=== PATIENT | male | born 1960 | race Asian ===

== ENCOUNTER → 2023-10-30 | Outpatient (CLI) | payer BC ==
--- NOTE | 2023-10-30 14:01 | XR ---
EXAMINATION TYPE: XR wrist complete LT DATE OF EXAM: 10/30/2023 COMPARISON: NONE HISTORY: Pain TECHNIQUE: Four views submitted. FINDINGS: There is a mildly displaced intra-articular fracture of the distal radius. Mild narrowing of first carpometacarpal joint and radiocarpal joint. Scapholunate joint distance is at the upper limits of normal measuring 2.5 mm. Mineralization is normal. No erosive changes. IMPRESSION: 1. Mildly displaced intra-articular fracture of the distal radius. A [place] level critical message alert has been initiated for Domenico Cheung MD via the [employer] Critical Results System on 10/30/2023 1:51 PM. This message alert has been sent to Domenico Cheung MD via the preferences provided by the clinician for the receipt of Radiology Critical Findings. Messag e ID [id number].
== END | disposition home or self-care (01) ==
LOC: RADXRMAIN 13:18
PROVIDERS: ATTEND Orthopaedic Surgery
DX: S52.572A Other intraarticular fracture of lower end of left radius, initial encounter for closed fracture (principal); X58.XXXA Exposure to other specified factors, initial encounter

== ENCOUNTER → 2024-07-05 | Outpatient (CLI) | payer BC ==
--- NOTE | 2024-07-05 22:46 | MR ---
EXAMINATION TYPE: MR hip LT wo con DATE OF EXAM: 07/05/2024 4:52 PM COMPARISON: None. CLINICAL INDICATION: Male, 63 years old with history of M16.10, Left hip pain, S/P running. IV Contrast: cc (None if empty) Standard multiplanar, multisequence MRI departmental protocol Multiplanar, multisequence images of the pelvis focus and left hip were acquired without contrast. Di ffusion weighted imaging was performed. FINDINGS: Moderate narrowing of both hip joints is slightly more prominent on the left. Small to mode rate size joint effusions are more prominent on the left. Mild to moderate acetabular spurring bilate rally is more prominent on the left. Femoral head shapes are maintained bilaterally. There is asymmet che increased T2 signal or edema in the superior acetabulum on the left. No serpiginous diminished T1 signal to suggest avascular necrosis is seen in the left femoral head. No suspicious increase T2 sig nal or osseous edema in the proximal left femur is noted. Muscle bulk is symmetric and maintained nicole aterally. No groin hernia or adenopathy is seen. No free fluid in the pelvis. No abnormal bowel dilatation. Bladder and prostate gland are grossly wit hin normal limits. IMPRESSION: Moderate degenerative changes bilaterally more prominent in the left hip with asymmetric left-sided a cetabular bone marrow edema is noted. [facility], , 07/05/2024 10:44 PM
== END | disposition home or self-care (01) ==
LOC: RADMRIMAIN 15:15
PROVIDERS: ATTEND Family Medicine
DX: M16.0 Bilateral primary osteoarthritis of hip (principal); R60.0 Localized edema

== ENCOUNTER → 2024-11-11 | Outpatient (CLI) | payer BC ==
--- NOTE | 2024-11-11 13:11 | XR ---
EXAMINATION TYPE: XR chest 2V DATE OF EXAM: 11/11/2024 1:06 PM COMPARISON: Chest radiographs from TECHNIQUE: XR chest 2V Frontal and lateral views of the chest. CLINICAL INDICATION:Male, 64 years old with history of Z01.818 ENCOUNTER FOR OTHER PREPROCEDURAL EXAM INAT; FINDINGS: Lungs/Pleura: There is no evidence of pleural effusion, focal consolidation, or pneumothorax. Right perihilar 2.2 cm nodular opacity. Pulmonary vascularity: Unremarkable. Heart/mediastinum: Cardiomediastinal silhouette is unremarkable. Musculoskeletal: No acute osseous pathology. Mild multilevel degenerative disc disease. IMPRESSION: Right perihilar 2.2 cm nodular opacity. Recommend further evaluation with CT chest with IV contrast. [facility], , 11/11/2024 1:09 PM
== END | disposition home or self-care (01) ==
LOC: RADXRMAIN 12:55
PROVIDERS: ATTEND Family Medicine
DX: Z01.818 Encounter for other preprocedural examination (principal); R91.8 Other nonspecific abnormal finding of lung field
CPT/HCPCS: 71046

== ENCOUNTER → 2024-11-12 | Outpatient (CLI) | payer BC ==
[2024-11-12 15:45] LABS: Partial Thromboplastin Time 23.2 sec (22.0-30.0); Prothrombin Time 10.8 sec (10.0-12.5)
[2024-11-12 18:28] LABS: HCT 40.4 % (39.6-50.0); HGB 12.9 g/dL (13.0-17.0); MCH 26.9 pg (27.0-32.0); MCHC 31.9 g/dL (32.0-37.0); MCV 84.2 FL (80.0-97.0); Mean Platelet Volume 9.9 FL (9.5-12.2); NRBC Per 100 WBC 0 X 10*3/uL (0.00-0.01); Platelet Count 276 X 10*3/uL (140-440); RDW 13.4 % (11.5-14.5); WBC 5.98 X 10*3/uL (4.50-10.00)
[2024-11-12 18:48] LABS: ALT 22 U/L (10-49); AST 26 U/L (14-35); Albumin 4.4 g/dL (3.8-4.9); Albumin/Globulin Ratio 1.83 Ratio (1.60-3.17); Alkaline Phosphatase 80 U/L (41-126); BUN/Creat Ratio 17.11 Ratio (12.00-20.00); Blood Urea Nitrogen 15.4 mg/dL (9.0-27.0); Calcium 9.4 mg/dL (8.7-10.3); Carbon Dioxide 26.6 mmol/L (21.6-31.8); Chloride 103 mmol/L (96-109); Globulin 2.4 g/dL (1.6-3.3); Glucose 80 mg/dL (70-110); Potassium 4.4 mmol/L (3.5-5.5); Sodium 143 mmol/L (135-145); T4, Free (Free Thyroxine) 1.53 ng/dL (0.80-1.80); Total Bilirubin 0.4 mg/dL (0.3-1.2); Total Protein 6.8 g/dL (6.2-8.2)
[2024-11-12 22:08] LABS: Appearance,Urine Clear (Clear); Bilirubin,Urine Negative (Negative); Blood,Urine Negative (Negative); Color,Urine Yellow (Yellow); Ketones,Urine Negative (Negative); Nitrite,Urine Negative (Negative); Specific Gravity,Urine 1.009 (1.001-1.030); Urobilinogen,Urine 0.2 E.U./DL
== END | disposition home or self-care (01) ==
LOC: LABPAT 14:23
PROVIDERS: ATTEND Orthopaedic Surgery
DX: Z01.812 Encounter for preprocedural laboratory examination (principal); M16.12 Unilateral primary osteoarthritis, left hip; Z22.322 Carrier or suspected carrier of Methicillin resistant Staphylococcus aureus
CPT/HCPCS: 36415; 80053; 81003; 83036; 84439; 84443; 84481; 85027; 85610; 85730; 86850; 86900; 86901; 87070; 87086

== ENCOUNTER → 2024-11-13 | Outpatient (CLI) | payer BC ==
--- NOTE | 2024-11-13 15:01 | CT ---
CT chest with contrast. HISTORY: Solitary pulmonary nodule. COMPARISON: None. TECHNIQUE: Multiple axial images are obtained through the thorax following nonionic IV contrast. FINDINGS: In the right lower lobe posteriorly there is a 2.2 cm nodule with coarse or dense calcification centr ally. There is a 5 mm nodule in the left upper lobe, 4.4 mm nodule in the left upper lobe and a 6.3 mm supe rficial nodule on the left. There is no airspace consolidation or abnormal interstitial density. There is no pleural effusion, pleural thickening or pneumothorax. The great vessels the chest are normal with no mediastinal, hilar or axillary adenopathy. There is no pulmonary embolus. Limited scanning of the upper abdomen reveals no gross abnormality. No focal osseous lesions are seen. IMPRESSION: 1. No acute cardiopulmonary disease. 2. 2.2 cm benign nodule with coarse calcification in the right lower lobe posteriorly.. 3. A few micronodules and sub-5 mm left upper lobe nodules. CT thorax in 6 months is recommended to c onfirm stability. [facility], Workstation: [id number] 11/13/2024 2:59 PM
== END | disposition home or self-care (01) ==
LOC: RADCTMAIN 14:23
PROVIDERS: ATTEND Family Medicine
DX: R91.8 Other nonspecific abnormal finding of lung field (principal); I25.10 Atherosclerotic heart disease of native coronary artery without angina pectoris
CPT/HCPCS: 71260; Q9967

== ENCOUNTER → 2024-11-20 | Outpatient (CLI) | payer BC | END | disposition home or self-care (01) | LOC: LABPAT 13:15 | PROVIDERS: ATTEND Orthopaedic Surgery | DX: Z01.812 Encounter for preprocedural laboratory examination (principal); M16.12 Unilateral primary osteoarthritis, left hip; Z22.322 Carrier or suspected carrier of Methicillin resistant Staphylococcus aureus | CPT/HCPCS: 86850; 86900; 86901 ==

== ENCOUNTER 2024-11-25 05:38 | Day surgery (SDC) | payer BC ==
[~2024-11-25 05:38] MED LIST: TRANEXAMIC 1,000 MG/100ML-NACL 1,000 MG in SALINE 1 100ML.BAG IVPB PRN
[2024-11-25] MEDS: IV FLUID CONTINUATION 1,000 ML IV ONE (06:07)
[2024-11-25 06:18] LABS: Glucose,Whole Blood 88 mg/dL (70-110)
[2024-11-25] MEDS: DEXAMETHASONE SOD PHOSPHATE 4 MG/ML 1 ML VIAL IV ONE (06:27)
[2024-11-25] MEDS: MELOXICAM 7.5 MG TAB PO PRN (06:27)
[2024-11-25] MEDS: LACTATED RINGERS 1,000 ML IV SCH (06:27)
[2024-11-25] MEDS: ONDANSETRON 4 MG/2 ML VIAL IVP ONE (06:28)
[2024-11-25] MEDS: ACETAMINOPHEN TAB 500 MG TAB PO PRN (06:28)
[2024-11-25] MEDS: GABAPENTIN 300 MG CAP PO PRN (06:28)
[2024-11-25] MEDS: SCOPOLAMINE 1 MG/72 HR PATCH TRANSDERM ONE (06:41)
[2024-11-25] MEDS: MIDAZOLAM 2 MG/2 ML VIAL IV PRN (06:46)
[2024-11-25] MEDS: fentaNYL (PF) 50 MCG/ML 2 ML AMP IVP STA (06:46)
[2024-11-25] MEDS ORDERED: MIDAZOLAM 2 MG/2 ML VIAL ONE (06:53)
[2024-11-25] MEDS ORDERED: TRANEXAMIC 1,000 MG/100ML-NACL PREMIX BAG ONE (06:53)
[2024-11-25] MEDS ORDERED: PROPOFOL 10 MG/ML 20 ML VIAL IV ONE (06:53)
[2024-11-25] MEDS ORDERED: PHENYLEPHRINE-0.9% NACL SYG 1,000 MCG/10 ML SYRINGE ONE (06:53)
[2024-11-25] MEDS ORDERED: DEXAMETHASONE SOD PHOSPHATE 4 MG/ML 1 ML VIAL ONE (06:53)
[2024-11-25] MEDS ORDERED: ROPIVACAINE 5 MG/ML 30 ML VIAL ONE (06:53)
[2024-11-25] MEDS ORDERED: ePHEDrine 50 MG/ML 1 ML VIAL ONE (06:53)
[2024-11-25] MEDS: ceFAZolin 2 GM in DEXTROSE 5% IN WATER 50 ML IVPB PRN (06:58)
[2024-11-25] MEDS: ceFAZolin 1,000 MG in SODIUM CHLORIDE 0.9% 1,000 ML IRRIGATION ONE (06:58)
[2024-11-25] MEDS ORDERED: HYDROmorphone 0.5 MG/0.5 ML SYRINGE IVP PRN ×3 (07:00→08:25)
[2024-11-25] MEDS: MIDAZOLAM 2 MG/2 ML VIAL IV ONE (07:04)
[2024-11-25] MEDS: ROPIVACAINE 5 MG/ML 30 ML VIAL MISCELLANE ONE ×2 (07:27→07:54)
--- NOTE | 2024-11-25 08:04 | P.OP ---
Date of Procedure: 11/25/24 Preoperative Diagnosis: Severe osteoarthritis left hip Postoperative Diagnosis: Severe osteoarthritis left hip Procedure(s) Performed: Left total hip arthroplasty with a direct anterior approach Implants: [employer] Polarstem standard size 0 with a collar [employer] R3, 3 hole hemispherical acetabular shell, 52 mm [employer] Reflection 6.5 mm cancellus screws, 20 mm 2 [employer] R3, XLPE 20 acetabular liner [employer] Oxinium femoral head 36 mm, +0 All components were press-fit. The articulation is Oxinium on polyethylene. Anesthesia: spinal Surgeon: Forrest Jones Bee Robber #1: Merline Yoo Estimated Blood Loss (ml): 50 Pathology: none sent Condition: stable Disposition: PACU Indications for Procedure: After failure of conservative treatment we discussed the surgical and nonsurgi deborah treatment options at length. Patient wishes to proceed with a total hip arthroplasty with a direct anterior approach. Complications specific to this procedure were discussed at length, including but not limited to infection, leg length discrepancy, dislocation, nerve injury, and fracture. Covid-19 was also discussed at length with the patient, and they are aware of the current policies and procedures. The patient was given the option of delaying surgery, but they elect to proceed knowing these risks. Patient is aware of all these complications and informed consent was obtained Operative Findings: The operative findings are consistent with severe osteoarthritis of the left hip Description of Procedure: The patient was seen and evaluated in the preoperative area and the consent was reviewed. The operative site was marked with a skin marker. The patient verified the procedure and operative site. A BARBI block was placed by anesthesia in the preoperative area. The patient was then brought to the operating room and given preoperative antibiotics intravenously. 1 g of Tranexamic acid was also given intravenously. A spinal anesthetic was administered by the anesthesia department. The patient was then placed on the [place] table with the bony prominences well-padded. The hip area was then prepped with a ChloraPrep solution and draped in the usual sterile fashion. A universal timeout was then performed, which confirmed the patient's name, surgical site, ALLERGIES, and procedure being performed on the consent. Next the incision site was located at 1 cm distal and 4 cm lateral to the anterior superior iliac spine. The skin and subcutaneous tissues were sharply incised. Incision was carefully dissected down to the fascia overlying the tensor fascia mercedes muscle. This fascia was then incised in line with the muscle fibers. Care was taken to stay laterally in order to avoid injuring the lateral femoral cu taneous nerve. Next, using blunt finger dissection, the tensor fascia mercedes muscle was dissected off its investing fascia. The muscle was then carefully retracted laterally with a cobra retractor over the lateral neck of the femur. Next, the circumflex vessels were identified and cauterized using the Aquamantis device. The anterior hip capsule was then exposed. The capsule was then opened and an inverted T fashion. The retractors were then placed intracapsularly. The retractors were maintained intracapsular throughout the procedure. The proximal femur was then visualized. Fluoroscopic x-rays were then taken in order to evaluate the preoperative leg lengths. A small amount of traction was placed on the leg. The femoral neck was then osteotomized at the appropriate level above the lesser trochanter. A small wedge of bone was then removed from the remaining femoral head. Next, using a corkscrew the femoral head was removed from the acetabulum. On gross visual inspection, the femoral head had complete loss of articular cartilage and multiple periarticular osteophytes. The femoral head was then measured. Attention was then turned to the acetabulum. The acetabulum was exposed and any remaining labrum was excised. Sequential reaming of the acetabulum was performed using fluoroscopic guidance until there was a good bed of bleeding cancellus bone. When the appropriate size was reached, a trial was then placed. The position and fit of the trial was checked with fluoroscopy. The trial was then removed. Then, using fluoroscopic guidance, the final implant was impacted at 20 of anteversion and 40 of abduction, and fully seated in the acetabulum. 2 screws were then placed in the acetabulum. Again fluoroscopy was used to check position of the screws. Next, the liner was then impacted, with a 20 elevated liner located in the anterior superior quadrant. Component locking was confirmed. Attention was then directed to the femur. With the aid of the Wy[place] table, the femur was externally rotated to approximately 130, extended, and adducted under the opposite leg. A side hook was then placed under the proximal femur, and the side hook elevator was used to elevate the proximal femur while releasing the capsule. Retractors were then placed. A capsular release was performed, as well as a release of the conjoined tendon, which afforded excellent visua lization of the proximal femur. Next, a box osteotome was used to lateralize the proximal femur. A sack cleaning hand was then used to locate the femoral canal. Sequential broaching was then performed with appropriate size which afforded excellent fixation in the proximal femur. A trial was then placed with appropriate head and neck, and the hip was gently reduced with the aid of the Wyola table. Fluoroscopy was then used to check position of the components, as well as to evaluate the leg lengths and offset. The leg lengths and offset were measured as closely as possible to ensure stability of the hip. The hip was then gently dislocated and the trials were then removed. Final implants were then impacted and the hip was again reduced. Final fluoroscopic x-rays confirmed that the components were in anatomic position. The leg lengths and offset were measured and were found to coincide with the trial measurements. The hip was also taken through range of motion, and found to be stable. The hip was then copiously irrigated with antibiotic solution with pulsatile lavage. The hip was then irrigated with Irrisept solution. The soft tissues were then injected with a ropivacaine solution. A second dose of 1 g of Tranexamic acid was also given intravenously. The fascia was then closed with 2-0 strata fix suture. The subcutaneous tissue was closed with 3-0 Vicryl. The subcuticular tissue was closed with 3-0 moncryl suture. The skin was then closed with Exofin skin glue. After the glue and dried, and Optifoam silver impregnated dressing was applied. The patient was then transferred to the recovery room in stable condition. The child welfare assistant JALEN Driver was required due to the complexity of surgery, and the need for skilled certified surgical tech/first assistant for positioning, draping, exposure, retraction, and closure of the wound.
[2024-11-25] MEDS ORDERED: MAGNESIUM HYDROXIDE 2,400 MG/30 ML CUP PO PRN (08:25)
[2024-11-25] MEDS ORDERED: NALOXONE 0.4 MG/ML 1 ML VIAL IV PRN (08:25)
[2024-11-25] MEDS ORDERED: ONDANSETRON 4 MG/2 ML VIAL IVP PRN (08:25)
[2024-11-25] MEDS ORDERED: HYDROmorphone 1 MG/ML 1 ML SYRINGE IVP PRN (08:25)
[2024-11-25 08:30] LABS: Glucose,Whole Blood 119 mg/dL (70-110)
--- NOTE | 2024-11-25 08:30 | FL ---
EXAMINATION TYPE: FL guidance operating room, XR Hip Limited LT DATE OF EXAM: 11/25/2024 FLUOROSCOPY left hip replacement, fluoro time: 23.8 seconds, DAP: 1.0082, 3 images saved [facility], Workstation: [facility], 11/25/2024 8:28 AM
--- NOTE | 2024-11-25 09:17 | P.ANPRN ---
Procedure Note - Anesthesia - Nerve Block Performed Left Umberto Single Time Out Performed: Yes ([id number]) Date of Procedure: 11/25/24 Procedure Start Time: 06:46 Procedure Stop Time: 06:49 Location of Patient: PreOp Indication: Acute Post-Operative Pain, Requested by Surgeon Specifically requested for management of pain by DrNeftaly: Forrest Jones Sedation Type: Sedate with meaningful contact maintained Preparation: Sterile Prep Position: Supine Catheter: None Needle Types: Pajunk Needle Gauge: 21 Ultrasound used to visualize needle placement: Yes Ultrasound used to observe medication spread: Yes Injectate: 0.5% Ropivacaine (see comment for volume) (30cc+decadron 4mg) Blood Aspirated: No Pain Paresthesia on Injection Noted: No Resistance on Injection: Normal Image Stored and Saved: Yes Events: Uneventful and Well Tolerated
--- NOTE | 2024-11-25 09:26 | XR ---
EXAMINATION TYPE: XR Hip Limited LT DATE OF EXAM: 11/25/2024 8:46 AM COMPARISON: Correlation MRI 07/05/2024 CLINICAL INDICATION: Male, 64 years old with history of Status post hip surgery, assess surgical js harding; PHH, pain TECHNIQUE: XR Hip Limited LT; Frontal view FINDINGS: Image shows placement of left total hip arthroplasty. Acetabular cup and femoral stem components of t he prosthesis appear well seated. There is subtle lucency along the superolateral margin of the aceta bular cup component. No displaced fractures are seen. Scattered soft tissue air related to recent ope ration. IMPRESSION: Postsurgical change of left hip total arthroplasty. Note a subtle lucency along the superior aspect o f the acetabular cup component. A subtle incomplete periprosthetic fracture is difficult to exclude. Further clinical correlation recommended. [facility], , 11/25/2024 9:23 AM
[2024-11-25] MEDS: SODIUM CHLORIDE 0.9% 1,000 ML IV SCH (11:08)
[2024-11-25] MEDS: ASPIRIN 325 MG TAB PO SCH (11:08)
[2024-11-25] MEDS: HYDROcodone/APAP 7.5-325MG 1 EACH TAB PO PRN (12:36)
[2024-11-25] MEDS: LEVOTHYROXINE 25 MCG TAB PO SCH (12:41)
[2024-11-25] MEDS: allopurinoL 100 MG TAB PO SCH (12:41)
[2024-11-25] MEDS: ceFAZolin 2 GM in DEXTROSE 5% IN WATER 50 ML IVPB SCH (16:06)
[2024-11-25] MEDS: DOXEPIN 25 MG CAP PO SCH (17:18)
[2024-11-25] MEDS: BISOPROLOL 5 MG TAB PO SCH (17:18)
[2024-11-25] MEDS: PRAMIPEXOLE 0.25 MG TAB PO SCH (17:18)
--- NOTE | 2024-11-25 18:55 | P.CONS ---
History of Present Illness - Reason for Consult Consult date: 11/25/24 Medical management - Chief Complaint Left hip arthroplasty - History of Present Illness Patient is a 64-year-old male with a past medical history of hypertension, hyperlipidemia, diabetes type 2 [id number], hypothyroidism, gout and RLS. Patient was admitted to the hospital for left total hip arthroplasty. Patient underwent left total hip arthroplasty with a direct anterior approach. Currently pain is controlled with nerve block. Denied any complaints of nausea or vomiting. No headache or dizziness or lightheadedness. No fever no chills. Heart rate in 50s. Blood pressure was 147/79 with pulse ox 91% on room air. Laboratory data is not available at this time. Review of Systems Constitutional: Patient denies any fever or chills . No generalized weakness or weight loss. Abdomen: Patient denied nausea vomiting and diarrhea and abdominal pain. Cardiovascular: Patient denies any chest pain or short of breath no palpitations. Respiratory: patient denied any cough or sputum production. No shortness of breath Neurologic: Patient denied any numbness or tingling. no headache. Musculoskeletal: Patient denies any complaints of joint swelling or deformity. Skin: Negative Psychiatric: Negative Endocrine: No heat or cold intolerance. No recent weight gain. Genitourinary: No dysuria or hematuria. All other 14 point ROS negative except the above Past Medical History Past Medical History: Diabetes Mellitus, Hyperlipidemia, Hypertension, Thyroid Disorder Additional Past Medical History / Comment(s): Type II DM, gout, RLS History of Any Multi-Drug Resistant Organisms: None Reported Past Surgical History: Ear Surgery Additional Past Surgical History / Comment(s): Rt. ear surgery, bilat. cataracts, colonoscopy Past Anesthesia/Blood Transfusion Reactions: No Reported Reaction Past Psychological History: No Psychological Hx Reported Smoking Status: Never smoker Past Alcohol Use History: None Reported Past Drug Use History: None Reported - Past Family History Father Family Medical History: Hypertension Mother Family Medical History: Diabetes Mellitus, Hypertension Medications and Allergies Home Medications Medication Instructions Recorded Confirmed Type Aspirin EC [Ecotrin Low Dose] 81 mg PO DAILY 11/20/24 11/25/24 History Bisoprolol Fumarate 5 mg PO DAILY 11/20/24 11/25/24 History Doxepin [SINEquan] 25 mg PO DAILY 11/20/24 11/25/24 History Evolocumab [Repatha Sureclick] 140 mg SQ Q14D 11/20/24 11/25/24 History Levothyroxine Sodium [Synthroid] 12.5 mcg PO DAILY 11/20/24 11/25/24 History Olmesartan Medoxomil 40 mg PO DAILY 11/20/24 11/25/24 History Pramipexole [Mirapex] 1 tab PO BID 11/20/24 11/25/24 History Tirzepatide [Mounjaro] 7.5 mg SQ Q7D 11/20/24 11/25/24 History allopurinoL 100 mg PO BID 11/20/24 11/25/24 History hydroCHLOROthiazide 25 mg PO DAILY 11/20/24 11/25/24 History Aspirin 325 mg PO BID #60 tab 11/25/24 Rx HYDROcodone/APAP 7.5-325MG [[place] 1 - 2 tab PO Q6H PRN #32 tab 11/25/24 Rx 7.5-325] Sennosides [Senokot] 2 tab PO DAILY PRN #60 tablet 11/25/24 Rx Allergies Allergy/AdvReac Type Severity Reaction Status Date / Time No Known Allergies Allergy Verified 11/25/24 06:21 Physical Exam Vitals: Vital Signs Temp Pulse Pulse Pulse Resp BP BP 11/25/24 09:30 97.3 F L 61 17 123/70 11/25/24 09:05 63 14 132/63 11/25/24 08:50 55 L 16 126/60 11/25/24 08:35 50 L 14 121/58 11/25/24 08:20 97.0 F L 53 L 16 97/47 11/25/24 06:50 62 16 130/67 11/25/24 06:09 98.0 F 55 L 16 142/74 Pulse Ox 11/25/24 09:30 100 11/25/24 09:05 95 11/25/24 08:50 96 11/25/24 08:35 100 11/25/24 08:20 100 11/25/24 06:50 100 11/25/24 06:09 100 Intake and Output 11/24/24 11/25/24 11/25/24 22:59 06:59 14:59 Intake Total 651 50 Output Total 50 Balance 651 0 Intake: IV 651 50 Output: Estimated Blood Loss 50 Other: Weight 72 kg 72 kg PHYSICAL EXAMINATION: Patient is lying in the bed comfortably, no acute distress, awake alert and oriented.. HEENT: Normocephalic. Neck is supple. Pupils reactive. Nostrils clear. Oral cavity is moist. Neck reveals no JVD, carotid bruits, or thyromegaly. CHEST EXAMINATION: Trachea is central. Symmetrical expansion. Lung martinez clear to auscultation and percussion. CARDIAC: Normal S1, S2 with no gallops. No murmurs ABDOMEN: Soft. Bowel sounds normal. No organomegaly. No abdominal bruits. Extremities: reveal no edema. No clubbing or cyanosis Neurologically awake, alert, oriented x3 with well-coordinated movements. No gross focal deficits noted Skin: No rash or skin lesions. Psychiatric: Coperative. Nonsuicidal Musculoskeletal: No joint swelling or deformity. Left hip surgical site bandaged. Results Labs: Abnormal Lab Results - Last 24 Hours (Table) 11/25/24 Range/Units 08:28 POC Glucose (mg/dL) 119 H (70-110) mg/dL Assessment and Plan Assessment: Status post left total hip arthroplasty postoperative day 0 Hypertension controlled now. Diabetes type 2 [id number]. On Mounjaro 7.5 mg subcu q. 7 days Hypothyroidism Restless leg syndrome. On doxepin and pramipexole Gout not in exacerbation DVT prophylaxis patient is on aspirin 325 mg twice daily Plan: Patient will be continued on current pain management, bowel regimen and encourage incentive spirometry. Continue with bisoprolol and olmesartan starting tomorrow. Hydrochlorothiazide is on hold. Continue with home medications. Follow-up CBC and BMP tomorrow. Further recommendations based on clinical course. Thank you kindly for your consult.
[2024-11-25] MEDS: SENNOSIDES-DOCUSATE SODIUM 1 EACH TAB PO SCH (20:20)
[2024-11-25] MEDS ORDERED: PRAMIPEXOLE 0.25 MG TAB PO SCH (21:00)
[2024-11-26 07:05] VITALS: BP 102/58; PULSE 60; TEMP 98
[2024-11-26 08:32] LABS: Calcium 8.3 mg/dL (8.7-10.3); Carbon Dioxide 22.7 mmol/L (21.6-31.8); Chloride 108 mmol/L (96-109); Glucose 103 mg/dL (70-110); Sodium 142 mmol/L (135-145)
[2024-11-26 08:43] LABS: Basophils # (A) 0.03 X 10*3/uL (0.00-0.10); Basophils % (A) 0.2 %; Eosinophils # (A) 0.02 X 10*3/uL (0.04-0.35); Eosinophils % (A) 0.2 %; HGB 10.4 g/dL (13.0-17.0); Lymphocytes # (A) 1.52 X 10*3/uL (0.90-5.00); Lymphocytes % (A) 12.2 %; MCH 27.3 pg (27.0-32.0); MCHC 32.5 g/dL (32.0-37.0); Mean Platelet Volume 9.8 FL (9.5-12.2); NRBC Per 100 WBC 0 X 10*3/uL (0.00-0.01); Neutrophils # (A) 9.34 X 10*3/uL (1.80-7.70); Platelet Count 234 X 10*3/uL (140-440); RBC 3.81 X 10*6/uL (4.40-5.60); RDW 13.6 % (11.5-14.5); WBC 12.46 X 10*3/uL (4.50-10.00)
[2024-11-26] MEDS: LOSARTAN 50 MG TAB PO SCH (08:48)
--- NOTE | 2024-11-26 09:01 | P.DS ---
Providers Expected date of discharge: 11/26/24 Attending physician: Forrest Jones Consults: 11/25/24 08:25 Consult Physician Routine Consulting Provider: Alli Sahni Consult Reason/Comments: medical management Do you want consulting provider notified?: Yes Primary care physician: Moni Cobiano - Discharge Diagnosis(es) (1) Osteoarthritis of left hip Current Visit: Yes Status: Acute (2) S/P total left hip arthroplasty Current Visit: Yes Status: Acute Hospital Course: This is a 64-year-old male with known history of degenerative arthritis of the left hip. The patient presented for evaluation as an outpatient. After discussion and consideration patient elects to proceed with total hip arthroplasty. The patient is seen preoperatively by Dr. Jones and medically cleared for surgery by their primary care physician. Patient is admitted to [facility] on 11/25/2024 for total hip arthroplasty. The procedure is performed without complication or sequelae. The patient is doing well postoperatively. Labs and vital signs are stable on day of discharge. On day of discharge patient's hip incision is healing well. There is minimal erythema. There is no drainage noted at this time. There is minimal soft tissue swelling to the hip and thigh. Patient has full foot and ankle motion without difficulty or pain. Calf is soft and nontender to palpation. Neurovascular status to the left lower extremity is intact. Patient is discharged home in good condition. Please see med rec for accurate list of home medications. Plan - Discharge Summary Discharge Rx Participant: Yes New Discharge Prescriptions: New Sennosides [Senokot] 2 tab PO DAILY PRN #60 tablet PRN Reason: Constipation Aspirin 325 mg PO BID #60 tab HYDROcodone/APAP 7.5-325MG [[place] 7.5-325] 1 - 2 tab PO Q6H PRN #32 tab PRN Reason: Pain No Action Tirzepatide [Mounjaro] 7.5 mg SQ Q7D Levothyroxine Sodium [Synthroid] 12.5 mcg PO DAILY allopurinoL 100 mg PO BID Pramipexole [Mirapex] 1 tab PO BID hydroCHLOROthiazide 25 mg PO DAILY Evolocumab [Repatha Sureclick] 140 mg SQ Q14D Doxepin [SINEquan] 25 mg PO DAILY Aspirin EC [Ecotrin Low Dose] 81 mg PO DAILY Bisoprolol Fumarate 5 mg PO DAILY Olmesartan Medoxomil 40 mg PO DAILY Discharge Medication List Aspirin EC [Ecotrin Low Dose] 81 mg PO DAILY 11/20/24 [History] Bisoprolol Fumarate 5 mg PO DAILY 11/20/24 [History] Doxepin [SINEquan] 25 mg PO DAILY 11/20/24 [History] Evolocumab [Repatha Sureclick] 140 mg SQ Q14D 11/20/24 [History] Levothyroxine Sodium [Synthroid] 12.5 mcg PO DAILY 11/20/24 [History] Olmesartan Medoxomil 40 mg PO DAILY 11/20/24 [History] Pramipexole [Mirapex] 1 tab PO BID 11/20/24 [History] Tirzepatide [Mounjaro] 7.5 mg SQ Q7D 11/20/24 [History] allopurinoL 100 mg PO BID 11/20/24 [History] hydroCHLOROthiazide 25 mg PO DAILY 11/20/24 [History] Aspirin 325 mg PO BID #60 tab 11/25/24 [Rx] HYDROcodone/APAP 7.5-325MG [[place] 7.5-325] 1 - 2 tab PO Q6H PRN #32 tab 11/25/24 [Rx] Sennosides [Senokot] 2 tab PO DAILY PRN #60 tablet 11/25/24 [Rx] Follow up Appointment(s)/Referral(s): Moni Ramirez MD [Primary Care Provider] - [facility] Week [facility] [NON-STAFF] - 1-2 Days ([facility] will call you to schedule your in home physical therapy visits. ) Forrest Jones DO [Doctor of Osteopathic Medicine] - 2 Weeks Ambulatory/Diagnostic Orders: Walker w/ Wheels [DME.AMB1] Time Frame: 3 Months, Location: None Selected Patient Instructions/Handouts: How to Use an Incentive Spirometer (DC), Anterior Hip Replacement (DC) Activity/Diet/Wound Care/Special Instructions: Weightbearing as tolerated with walker. Leave dressing intact. Dressing may be removed by home care nurse or by patient in 7 days. Then change dressing twice daily until follow up. May shower with initial dressing intact and after removal. If dressing become saturated, please remove. Please take aspirin 325mg twice daily for 30 days to prevent blood clots. Recommend use of compression stockings daily until follow up to help prevent swelling and blood clots. May remove at night before sleeping. [facility] follow[facility] with [facility] and call with any questions or concerns, . Discharge Disposition: HOME WITH HOME HEALTH SERVICES
[2024-11-26] MEDS: HYDROcodone/APAP 7.5-325MG 1 EACH TAB PO PRN (10:44)
[2024-11-26 11:07] VITALS: RESP 16
== END 2024-11-26 11:05 | disposition home health service (06) ==
LOC: OR 05:38 → 4SSUR 08:52 → OR 11-26 11:05
PROVIDERS: ATTEND Orthopaedic Surgery
DX: M16.12 Unilateral primary osteoarthritis, left hip (principal); E03.9 Hypothyroidism, unspecified; E11.9 Type 2 diabetes mellitus without complications; E78.5 Hyperlipidemia, unspecified; G25.81 Restless legs syndrome; G89.18 Other acute postprocedural pain; I10 Essential (primary) hypertension; M10.9 Gout, unspecified; Z79.82 Long term (current) use of aspirin; Z79.85 Long-term (current) use of injectable non-insulin antidiabetic drugs; Z79.890 Hormone replacement therapy; Z79.899 Other long term (current) drug therapy
CPT/HCPCS: 97161; 97535; 97165; 64473; 80048; 85025; 73501; 27130; C1776; J2250; J1100; J0690 ×2; J2405; J3010; J2795